=== PATIENT | male | born 1940 | race Caucasian/White ===

== ENCOUNTER → 2022-11-12 | Outpatient (CLI) | payer MEDICARE, BC | LOC: PET 08:45 | PROVIDERS: ATTEND Internal Medicine Hematology & Oncology | DX: C43.4 Malignant melanoma of scalp and neck (principal) | CPT/HCPCS: 78816; A9552 ==

== ENCOUNTER 2023-11-10 09:04 | Outpatient (CLI) | payer MEDICARE, BC ==
[2023-11-10] MEDS ORDERED: Iopamidol 370 76% 100 ML VIAL ONE (12:21)
== END 2023-11-10 09:05 | disposition home or self-care (01) ==
LOC: CT 09:04
PROVIDERS: ATTEND Internal Medicine Hematology & Oncology
DX: C43.4 Malignant melanoma of scalp and neck (principal); R91.1 Solitary pulmonary nodule; J98.11 Atelectasis; I25.10 Atherosclerotic heart disease of native coronary artery without angina pectoris; N28.1 Cyst of kidney, acquired; N20.0 Calculus of kidney; K40.90 Unilateral inguinal hernia, without obstruction or gangrene, not specified as recurrent
CPT/HCPCS: 70490; 71260; 74177; Q9967

== ENCOUNTER 2024-05-29 08:24 | Outpatient (CLI) | payer MEDICARE, BC ==
[2024-05-29] MEDS ORDERED: Iopamidol 370 76% 100 ML VIAL ONE (10:25)
== END 2024-05-29 08:25 | disposition home or self-care (01) ==
LOC: CT 08:24
PROVIDERS: ATTEND Internal Medicine
DX: C43.4 Malignant melanoma of scalp and neck (principal); R91.8 Other nonspecific abnormal finding of lung field; N20.0 Calculus of kidney; M47.816 Spondylosis without myelopathy or radiculopathy, lumbar region
CPT/HCPCS: 70491; 71260; 74177; Q9967

== ENCOUNTER 2024-06-14 09:30 | Outpatient (CLI) | payer MEDICARE, BC | END 2024-06-14 09:31 | disposition home or self-care (01) | LOC: PET 09:30 | PROVIDERS: ATTEND Internal Medicine Hematology & Oncology | DX: C43.4 Malignant melanoma of scalp and neck (principal); C78.02 Secondary malignant neoplasm of left lung; R91.8 Other nonspecific abnormal finding of lung field | CPT/HCPCS: 78816; A9552 ==

== ENCOUNTER 2025-06-14 09:50 | Outpatient (CLI) | payer MEDICARE, BC | END 2025-06-14 09:51 | disposition home or self-care (01) | LOC: SCSMRI 09:50 | PROVIDERS: ATTEND Internal Medicine Hematology & Oncology | DX: C43.4 Malignant melanoma of scalp and neck (principal); Z79.899 Other long term (current) drug therapy | CPT/HCPCS: 70553; 76376 ==

== ENCOUNTER 2025-06-25 09:30 | Outpatient (CLI) | payer MEDICARE, BC | END 2025-06-25 09:31 | disposition home or self-care (01) | LOC: PET 09:30 | PROVIDERS: ATTEND Internal Medicine Hematology & Oncology | DX: C43.4 Malignant melanoma of scalp and neck (principal); Z79.899 Other long term (current) drug therapy | CPT/HCPCS: 78816; A9552 ==